=== PATIENT | female | born 2005 | race Caucasian/White ===

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

== ENCOUNTER → 2025-01-30 | Outpatient (CLI) | payer OTHER ==
[2025-01-30 16:33] LABS: BASOPHILS ABSOLUTE AUTO 0.04 K/mm3 (0.00-0.23); BASOPHILS PERCENT AUTO 0 % (0-2); EOSINOPHILS ABSOLUTE AUTO 0.24 K/mm3 (0.00-0.68); EOSINOPHILS PERCENT AUTO 3 % (0-6); Hematocrit 38.7 % (33.0-51.0); Hemoglobin 12.1 g/dL (11.5-16.0); IMMATURE GRAN ABSOLUTE AUTO 0.03 K/mm3 (0.00-0.10); IMMATURE GRAN PERCENT AUTO 0 % (0-1); LYMPHOCYTES ABSOLUTE AUTO 2.65 K/mm3 (0.84-5.20); LYMPHOCYTES PERCENT AUTO 29 % (21-46); MONOCYTES ABSOLUTE AUTO 0.71 K/mm3 (0.16-1.47); MONOCYTES PERCENT AUTO 8 % (4-13); Mean Corpuscular HGB 25.3 pg (26.0-34.0); Mean Corpuscular HGB Conc 31.3 g/dL (31.5-36.5); Mean Corpuscular Volume 81 fL (80-100); Mean Platelet Volume 8.9 fL (9.1-12.4); NEUTROPHILS ABSOLUTE AUTO 5.52 K/mm3 (1.96-9.15); NEUTROPHILS PERCENT AUTO 60 % (41-73); Platelet Count 322 K/mm3 (150-400); RDW Coefficient Variation 20.1 % (11.7-14.2); RDW Standard Deviation 58.2 fL (35.1-46.3); Red Blood Cell Count 4.78 M/mm3 (3.80-5.20); White Blood Cell Count 9.19 K/mm3 (4.00-11.30)
[2025-01-30 16:52] LABS: Albumin, Blood 4.5 g/dL (3.4-5.0); Albumin/Globulin Ratio 1.3 (0.8-1.8); Bilirubin, Total 0.3 mg/dL (0.1-1.0); Bun/Creatinine Ratio 11.1 (12.0-20.0); Calcium, Blood 9.5 mg/dL (8.5-10.1); Creatinine, Blood 0.72 mg/dL (0.40-1.00); Free Thyroxine 1.09 ng/dL (0.70-1.60); Globulin, Blood 3.6 g/dL (2.2-4.0); Potassium, Blood 3.8 mmol/L (3.5-5.5); Thyroid Stimulating Hormone 0.495 uIU/mL (0.360-4.800); Total Protein, Blood 8.1 g/dL (6.4-8.2)
== END ==
LOC: LAB SHORT 16:28 → LAB 16:28
PROVIDERS: Physician Assistant
DX: R53.83 Other fatigue (principal); R82.81 Pyuria
CPT/HCPCS: 80053; 84439; 84443; 84481; 85025; 87077; 87086; 87186

== ENCOUNTER 2025-03-24 09:15 | Day surgery (SDC) | payer OTHER ==
[2025-03-24] MEDS ORDERED: Sod Ferric Gluc Complx/Sucrose 125 MG in NS 100 ML IV SCH (10:05)
[2025-03-24 14:15] VITALS: BP 100/65
== END 2025-03-24 15:23 | disposition home or self-care (01) ==
LOC: ATC 09:15
DX: D50.9 Iron deficiency anemia, unspecified (principal); G89.29 Other chronic pain; M54.6 Pain in thoracic spine; R63.4 Abnormal weight loss; E05.90 Thyrotoxicosis, unspecified without thyrotoxic crisis or storm; Z88.2 Allergy status to sulfonamides
CPT/HCPCS: 96365; J2916

== ENCOUNTER 2025-04-24 05:11 | Day surgery (SDC) | payer OTHER ==
[~2025-04-24 05:11] MED LIST: Sod Ferric Gluc Complx/Sucrose 125 MG in NS 100 ML IV SCH; [UNRECOGNIZED DRUG - OTHER] IV
[2025-04-24 14:52] VITALS: BP 120/68
== END 2025-04-24 16:00 | disposition home or self-care (01) ==
LOC: ATC 05:11
DX: D50.9 Iron deficiency anemia, unspecified (principal); G89.29 Other chronic pain; M54.6 Pain in thoracic spine; R14.0 Abdominal distension (gaseous); E05.90 Thyrotoxicosis, unspecified without thyrotoxic crisis or storm; R63.4 Abnormal weight loss; Z68.1 Body mass index [BMI] 19.9 or less, adult; Z79.899 Other long term (current) drug therapy; Z88.2 Allergy status to sulfonamides
CPT/HCPCS: 96365; J2916

== ENCOUNTER 2025-05-03 02:27 | Day surgery (SDC) | payer OTHER ==
[~2025-05-03 02:27] MED LIST changes: -Sod Ferric Gluc Complx/Sucrose 125 MG in NS 100 ML IV SCH
[2025-05-03] MEDS ORDERED: Sod Ferric Gluc Complx/Sucrose 125 MG in NS 100 ML IV SCH (06:00)
[2025-05-03 15:00] VITALS: BP 114/68
== END 2025-05-03 16:08 | disposition home or self-care (01) ==
LOC: ATC 02:27
DX: D50.9 Iron deficiency anemia, unspecified (principal); Z88.2 Allergy status to sulfonamides; Z79.899 Other long term (current) drug therapy
CPT/HCPCS: 96365; J2916